=== PATIENT | female | born 1965 | race Caucasian/White ===

== ENCOUNTER → 2018-11-12 | Day surgery (SDC) | payer OTHER ==
--- NOTE | 2018-11-15 11:58 | OP ---
DATE OF OPERATION: 11/12/2018 PREOPERATIVE DIAGNOSIS: Left breast mass, 11:30, 7 cm from the nipple. POSTOPERATIVE DIAGNOSIS: Left breast mass, 11:30, 7 cm from the nipple. PROCEDURE: Left ultrasound-guided core biopsy with clip placement. ANESTHESIA: Local. ATTENDING SURGEON: Magdi Dacosta MD ESTIMATED BLOOD LOSS: Minimal. COMPLICATIONS: None. PROCEDURE: Patient was made aware of the risks and benefits of the procedure and consented. She was placed in a supine position. Under sterile conditions, with 1% lidocaine for local anesthesia, a small anny was made in the skin. Using a 10-gauge suction biopsy device under ultrasound guidance, multiple cores were obtained and submitted to Pathology. Likewise, under ultrasound guidance, a U-shaped clip was placed into the biopsy region. Well tolerated by patient. Steri-Strips and sterile bandage were applied. Will contact her with the results. MAGDI DACOSTA M.D. [id number]
--- NOTE | 2018-11-15 13:36 | PATH ---
Surgical Pathology Report Patient Name: SAMIA GUERRERO [facility]. Rec. #: [id number] /Age/Gender: 1965 (Age: 52) / F Account: [id number] Location: [facility] Taken: 11/12/2018 Received: 11/12/2018 Reported: 11/15/2018 Physicians: Karel Mckeon M.D. 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 MICROCALCIFICATIONS ARE IDENTIFIED. Results of ER and NC studies performed at [facility] are as follows: ER (clone [id number] mouse monoclonal antibody by [employer]): >95% nuclear staining with strong intensity (Positive). NC (clone16 mouse monoclonal antibody by Leica): >95% nuclear staining with strong intensity (Positive). Assays for HER-2/rocco and Ki67 are pending, and a report will follow. Positive and negative controls (internal if applicable) show appropriate results. Formalin fixation times are within current ASCO/CAP recommendations for ER, NC and Her2 testing. Comment: Immunohistochemical stain for e-cadherin performed and interpreted at [facility] is positive, consistent with ductal phenotype. Electronically Signed Ferdinand Katz M.D. Addendum Reported: 11/16/2018 Addendum Diagnosis Results of Her2 (IHC) & Ki-67 studies performed at [place], [place] ([id number]) are as follows: Her2 IHC (EP3 from [employer], formerly known as [id number], using Alfonso Polymer Refine detection kit): 0 /Negative Ki-67: ~10% (Low proliferative index) Positive and negative controls (internal if applicable) show appropriate results. Ferdinand Katz M.D. Gross Description Received in formalin labeled "left breast 11:30, 7 cmfn," is a 2.0 x 1.8 x 0.3 cm aggregate of mcmillan-yellow, irregular to cylindrical portions of fibroadipose tissue. The formalin is filtered and the specimen is entirely submitted in one cassette. Total formalin fixation time: Approximately 6 hours 11/12/201811/12/2018
== END | disposition home or self-care (01) ==
LOC: FRADUS-SUR 13:57
PROVIDERS: ATTEND Surgery Surgical Oncology
PROC: 0HBU3ZX Excision of Left Breast, Percutaneous Approach, Diagnostic (ICD-10-PCS; principal; 2018-11-12)
DX: C50.212 Malignant neoplasm of upper-inner quadrant of left female breast (principal); Z17.0 Estrogen receptor positive status [ER+]; N63.22 Unspecified lump in the left breast, upper inner quadrant
CPT/HCPCS: 19083; 76641-TC-RT; 87899; 88305-TC; 88342-TC; A4648

== ENCOUNTER 2019-01-25 06:57 | Day surgery (SDC) | payer OTHER ==
--- NOTE | 2019-01-14 10:41 | HP ---
Admitting History and Physical - Primary Care Physician PCP: Magdi Dacosta - Admission Chief Complaint: left breast cancer History of Present Illness: Patient is a 53 yo female who was noted to have architectural distortion in the 12 oclock position of left breast on screening mammo. Followup US revealed a corresponding .6 cm at 11:30 (7 cm FN) position. US guided core bx of this lesion ( 11/12/2018) was c/w mod dif invasive ductal ca ER and SD pos. Her 2 negative. The MRI was c/w known breast cancer and genetic testing was negative. Patient is now presenting for left breast WE with NL, snbx poss andx and intraop radiation. History Source: Patient Limitations to Obtaining History: No Limitations (exploratory lap-1988 Excision of right thigh lipoma (2008) Right breast excisional bx (2004-fibroadenoma)) - Past Medical History Endocrine: Yes: Hypothyroidism - Past Surgical History Past Surgical History: Yes: Hysterectomy (BONIFACIO prolapse uterus at age 42) - Smoking History Smoking history: Never smoked Have you smoked in the past 12 months: No - Alcohol/Substance Use Hx Alcohol Use: No Home Medications - Allergies Allergies/Adverse Reactions: Allergies Allergy/AdvReac Type Severity Reaction Status Date / Time No Known Allergies Allergy Verified 11/24/18 10:35 - Home Medications Home Medications (free text): synthroid Family Disease History - Family Disease History Family History: Unremarkable Family Disease History: CA: Grandparent (mat GM and mat GF CRC 50's /83) Review of Systems - Review of Systems Constitutional: reports: No Symptoms Cardiovascular: reports: No Symptoms Respiratory: reports: No Symptoms Physical Examination Constitutional: Yes: Well Nourished Cardiovascular: Yes: WNL Respiratory: Yes: WNL Breast(s): Yes: Other ( Breasts are symmetrical without any skin changes. No suspicious palpable masses or adenopathy noted bilaterally.) Problem List - Problems (1) Breast cancer, left Code(s): C50.912 - MALIGNANT NEOPLASM OF UNSPECIFIED SITE OF LEFT FEMALE BREAST Qualifiers: Breast location: upper inner quadrant of breast Estrogen receptor status: positive Patient sex: female Qualified Code(s): C50.212 - Malignant neoplasm of upper-inner quadrant of left female breast; Z17.0 - Estrogen receptor positive status [ER+] Assessment/Plan Plan: Left breast WE with NL, snbx, possible andx and intraop radiation
[2019-01-20 10:19] VITALS: BMI 30.1
[2019-01-25] MEDS ORDERED: ISOSULFAN BLUE 10 MG/ML VIAL SQ ONE (14:18)
[2019-01-25] MEDS ORDERED: PROPOFOL 20 ML ONE ×14 (14:28→16:58)
[2019-01-25] MEDS ORDERED: DEXAMETHASONE SOD PHOSPHATE 4 MG/1 ML VIAL ONE (14:35)
[2019-01-25] MEDS ORDERED: ROCURONIUM BROMIDE 50 MG/5 ML SYRINGE ONE (14:35)
[2019-01-25] MEDS ORDERED: LIDOCAINE HCL/PF 2% SDV 5ML VIAL ONE (14:35)
[2019-01-25] MEDS ORDERED: ONDANSETRON 4 MG/2 ML VIAL ONE (14:35)
[2019-01-25] MEDS ORDERED: MIDAZOLAM HCL 2 MG/2 ML SINGLE DOSE VIAL ONE (14:35)
[2019-01-25] MEDS ORDERED: KETOROLAC TROMETHAMINE 30 MG/1 ML VIAL ONE (15:03)
[2019-01-25] MEDS ORDERED: EPHEDRINE SULFATE/0.9% NACL/PF 50 MG/10 ML SYRINGE NR ONE (15:14)
[2019-01-25] MEDS ORDERED: KETOROLAC TROMETHAMINE 30 MG/1 ML VIAL IVPUSH PRN (16:33)
[2019-01-25] MEDS ORDERED: ONDANSETRON 4 MG/2 ML VIAL IVPUSH PRN ×2 (16:33→17:46)
[2019-01-25] MEDS ORDERED: DEXTROSE 5%-0.45% SALINE 1,000 ML IV SCH (16:45)
[2019-01-25] MEDS ORDERED: GUM MASTIC/STORAX/MSAL/ALCOHOL 1 DRP DROPSBTL MC ONE (17:30)
[2019-01-25] MEDS ORDERED: oxyCODONE HCL 5 MG TABLET PO PRN (17:46)
[2019-01-25] MEDS ORDERED: LACTATED RINGERS SOLUTION 1,000 ML IV SCH (18:00)
[2019-01-25 18:49] VITALS: TEMP 97.8
[2019-01-25 19:16] VITALS: BP 114/68; PULSE 71
--- NOTE | 2019-01-26 12:31 | OP ---
DATE OF OPERATION: 01/25/2019 PREOPERATIVE DIAGNOSIS: Left breast cancer. POSTOPERATIVE DIAGNOSIS: Left breast cancer. PROCEDURE: Post-lumpectomy intraoperative radiation therapy for left breast cancer. ATTENDING SURGEON: Magdi Dacosta MD HEALTH PROMOTER/RADIATION ONCOLOGIST: Oleksandr Contreras MD ANESTHESIA: General. COMPLICATIONS: None. INDICATIONS: The patient is a 53-year-old woman with a clinical stage I invasive duct carcinoma of the left breast who has elected breast conservation therapy with intraoperative radiation therapy on the [facility] trial. DESCRIPTION OF PROCEDURE: Dr. Dacosta performed left lumpectomy and sentinel lymph node biopsy which he has dictated. After excision of additional margins, the lumpectomy cavity was prepared and sized with a 4.5-cm diameter spherical applicator which was placed into the surgical cavity at the 12 o'clock aspect of the left breast. The surrounding breast tissues were cinched around the applicator with a Vicryl purse-string suture. I performed a clinical and ultrasound simulation to ensure that the applicator was located within the operative bed with close apposition of the surrounding breast tissue to the surface of the applicator. Ultrasound measurements confirmed at least 1.8-cm separation from the applicator to the skin at the 6 o'clock aspect of the applicator. Saline soaked Ray-Jacobo gauze were placed between the skin and breast tissue to optimize the separation. We confirmed that the system was off the chest wall. Shielding material was placed over the breast to reduce scatter radiation. The patient then received a total dose of 20 Gy prescribed to 0 mm from the applicator surface, with 50-kV x-rays using the Intrabeam System. Prior to treatment, the system was double checked with appropriate physics lead quality technician measures. The total time required for the treatment was 37 minutes, 6 seconds at a dose rate of 0.538 Gy per minute. When the treatment was completed , survey of the patient and room confirmed that the Intrabeam source was off. There were no complications or unplanned interruptions. Dr. Dacosta removed the radiation applicator from the patient and completed the surgery. The patient will be discharged to the recovery room following the surgery. OLEKSANDR CONTRERAS M.D. [id number] CC: Magdi Dacosta MD [facility]
--- NOTE | 2019-01-26 12:48 | OP ---
DATE OF OPERATION: 01/25/2019 PREOPERATIVE DIAGNOSIS: Left breast cancer. POSTOPERATIVE DIAGNOSIS: Left breast cancer. PROCEDURE: Left breast partial mastectomy with sentinel lymph node biopsy and intraoperative radiation. ANESTHESIA: General intubated. ATTENDING SURGEON: Hipolito Dacosta MD SAMPLES AND REPAIRS PREPARER: SHE Dunne ESTIMATED BLOOD LOSS: Minimal. COMPLICATIONS: None. PROCEDURE: Patient was made aware of the risks and benefits of the procedure and consented. Patient went to Radiology where a needle was placed next to the index lesion as well as Nuclear Medicine where the breast was injected with a nuclear tracer. She was then placed in the supine position on the operating room table and after general anesthesia was induced the patient was intubated. The operative site was prepped and draped in the usual sterile fashion. Isosulfan blue 2.5 mL were locally infiltrated into the peritumoral tissues in the left breast. Waiting approximately 20 minutes with gentle manual compression a curvilinear incision was made in the left axilla. Using blunt and sharp dissection posterior 3 or 4 lymph nodes were excised and submitted to Pathology for permanent section. Interrogation of the axilla with palpation and the Neoprobe revealed no suspicious hot lymph nodes. The wound was copiously irrigated with normal saline. Hemostasis maintained by electrocautery. The wound was closed with deep 3-0 Vicryl followed by a running subcuticular 4-0 Monocryl. The left breast was then approached. A curvilinear parallel incision was then made using electrocautery. Thick skin flaps were made. The needle was withdrawn from the puncture site and the wire through the wound. Tissues around the wire were then sharply excised and submitted with short suture superior, long suture lateral. Specimen radiograph confirmed the presence of the index lesion and the specimen was submitted for permanent sectioning. Additional segments were taken superior, inferior, medial, lateral, deep and anterior with clips at the new margin. The wound was copiously irrigated with normal saline. Hemostasis maintained by electrocautery. A 4.5-cm probe was then placed into the cavity and the tissue was apposed to it using a No. 1 Vicryl pursestring suture. Intraoperative ultrasound showed that all the distances from the skin were greater than 1 cm. Saline-soaked gauze was placed in the wound to protect the skin edges and a radiopaque material was placed over the chest cavity. The patient underwent approximately 38 minutes of intraoperative radiation. Thereafter, the probe, gauze and suture were removed. The wound was copiously irrigated with normal saline. Hemostasis maintained by electrocautery. Tissues were rotated into the defect and closed with several layers of figure-of-8 sutures of 2-0 Vicryl. Skin was then closed with interrupted 3-0 Vicryl followed by a running subcuticular 4-0 Monocryl. Steri-Strips, sterile dressing and a compression bra were then applied and the patient having tolerated the procedure well was transferred to the recovery room in excellent condition. HIPOLITO DACOSTA M.D. [id number]
--- NOTE | 2019-01-31 10:39 | PATH ---
Surgical Pathology Report Patient Name: SAMIA GUERRERO [facility]. Rec. #: [id number] /Age/Gender: 1965 (Age: 53) / F Account: [id number] Location: [facility] Taken: 01/25/2019 Received: 01/25/2019 Reported: 01/31/2019 Physicians: Magdi Dacosta M.D. Specimen(s) Received A: LEFT AXILLARY SENTINEL NODES B: LEFT BREAST WIDE EXCISION C: LEFT BREAST DEEP MARGIN D: LEFT BREAST ANTERIOR MARGIN E: LEFT BREAST SUPERIOR MARGIN F: LEFT BREAST INFERIOR MARGIN G: LEFT BREAST MEDIAL MARGIN H: LEFT BREAST LATERAL MARGIN Clinical History Wide excision: Invasive Ca Final Diagnosis A. LEFT AXILLARY SENTINEL LYMPH NODES, EXCISION: THREE LYMPH NODES, NEGATIVE FOR METASTATIC CARCINOMA (0/3). B. LEFT BREAST, WIDE EXCISION: INVASIVE DUCTAL CARCINOMA, MODERATELY DIFFERENTIATED (TUBULE SCORE 3/3, NUCLEAR GRADE: 2/3, MITOTIC SCORE: 1/3, TOTAL SCORE 6/9, DIAMOND GRADE 2), MEASURING 0.8 CM IN GREATEST DIMENSION, MICROSCOPICALLY. ONE SEPARATE INVASIVE CARCINOMA SATELLITE NODULE, MEASURING <1 MM IN GREATEST DIMENSION, IS PRESENT. DUCTAL CARCINOMA IN SITU (DCIS) NOT IDENTIFIED. SURGICAL MARGINS ARE UNINVOLVED BY CARCINOMA. INVASIVE CARCINOMA IS AT 1 MM FROM THE CLOSEST (SUPERIOR) MARGIN. ALSO SEE SPECIMENS C TO H FOR FINAL MARGINS. NO LYMPHOVASCULAR INVASION IS IDENTIFIED. PRIOR BIOPSY SITE WITH REACTIVE CHANGES. PATHOLOGIC STAGE (pTNM): pT1b, pN (sn)0 SEE ALSO INVASIVE CARCINOMA CASE SUMMARY BELOW. Comment: Immunohistochemical stains (block B2) performed and interpreted at [facility] show the following results: smooth muscle myosin heavy chain and p63 show loss of the myoepithelial cell layer in the areas of invasive carcinoma. E-Cadherin shows membranous expression in the tumor cells, supports a ductal phenotype. C. LEFT BREAST DEEP MARGIN, EXCISION: BENIGN BREAST TISSUE. NEGATIVE FOR CARCINOMA. D. LEFT BREAST ANTERIOR MARGIN, EXCISION: BENIGN BREAST TISSUE. NEGATIVE FOR CARCINOMA. E. LEFT BREAST SUPERIOR MARGIN, EXCISION: BENIGN BREAST TISSUE. NEGATIVE FOR CARCINOMA. F. LEFT BREAST INFERIOR MARGIN, EXCISION: BENIGN BREAST TISSUE. NEGATIVE FOR CARCINOMA. G. LEFT BREAST MEDIAL MARGIN, EXCISION: BENIGN BREAST TISSUE. NEGATIVE FOR CARCINOMA. H. LEFT BREAST LATERAL MARGIN, EXCISION: BENIGN BREAST TISSUE. NEGATIVE FOR CARCINOMA. Comments Breast Invasive Carcinoma: Surgical Pathology Case Summary (Based on AJCC TNM 8 th edition) Procedure _x_ Excision (less than total mastectomy) Specimen Laterality _x_ Left Tumor Size Greatest dimension of largest invasive focus >1 mm (millimeters): 8 mm Histologic Type _x_ Invasive carcinoma of no special type (ductal, not otherwise specified) Histologic Grade (O'Brien Histologic Score) Glandular (Acinar)/Tubular Differentiation _x_ Score 3 (<10% of tumor area forming glandular/tubular structures) Nuclear Pleomorphism _x_ Score 2 Mitotic Rate _x_ Score 1 Overall Grade _x_ Grade 2 (scores of 6 or 7) Tumor Focality _x_ Multiple foci of invasive carcinoma +__x_ Number of foci: 2 + Sizes of individual foci (millimeters): 8mm and <1mm in greatest dimension Ductal Carcinoma In Situ (DCIS) _x_ No DCIS in specimen Margins Invasive Carcinoma Margins _x_ Uninvolved by invasive carcinoma Distance from closest margin (millimeters): > 1 mm Closest margin: Superior. The carcinoma is at 1mm from the superior margin in the wide excision (specimen B). Additional superior margin (specimen E) is negative for carcinoma. DCIS Margins _x_ No DCIS in specimen Regional Lymph Nodes _x_ Uninvolved by tumor cells Number of Lymph Nodes Examined: 3 Number of [place] Nodes Examined: 3 Treatment Effect _x_ No known presurgical therapy Lymphovascular Invasion _x_ Not identified Pathologic Stage Classification (pTNM, AJCC 8th Edition) Primary Tumor (Invasive Carcinoma) (pT) _x_ pT1b: Tumor >5 mm but =10 mm in greatest dimension Regional Lymph Nodes (pN) Category (pN) _x_ pN0: No regional lymph node metastasis identified or ITCs only Biomarker Studies Results of ER and ME studies performed on prior biopsy (D1) at [facility] are as follows: ER (clone [id number] mouse monoclonal antibody by [employer]): >95 % nuclear staining with strong intensity (positive). ME (clone16 mouse monoclonal antibody by [employer]):>95% nuclear staining with strong intensity (positive). Results of Her2 (IHC) & Ki-67 studies performed on prior biopsy (D18) at [place], [place] ([id number]) are as follows: Her2 IHC (EP3 from [employer], formerly known as [id number], using Alfonso Polymer Refine detection kit): 0/negative Ki67:~10% (low proliferative index) Electronically Signed Destinee Roldan M.D. Gross Description A. Received in formalin, labeled "left axillary sentinel nodes" are three lymph nodes with attached adipose tissue, ranging from 0.5-2 cm in greatest dimension. The largest lymph node is bisected and the lymph nodes are entirely submitted in to the follows: 1-larger bisected lymph node; 2-two whole lymph nodes. B. Received in formalin, labeled "left breast wide excision" is a 4 x 3.2 x 1.8 cm portion of fibrofatty tissue with a localizing needle in place. A long suture designates the lateral margin and a short suture indicates the superior margin, per the surgeon. The specimen is inked as follows: Superior blue, inferior green, medial yellow, deep black, anterior and lateral red. Sectioning reveals a central, hemorrhagic biopsy site with surrounding areas of fat necrosis and foci of firm to fibrous tissue, abutting the superior and anterior margins. No definitive mass is identified. The specimen is entirely submitted in ten cassettes as follows: 1-6- serially sectioned. central tissue with biopsy site including superior, inferior, anterior and deep margins; 7,8- lateral margin; 9,10-medial margin. Time to formalin fixation: 6 minutes Total formalin fixation time: Approximately 28 hours C. Received in formalin, labeled "deep margin" is a 2.8 x 2.5 x 0.4 cm portion of fibrofatty tissue with a clip at the new margin, per the surgeon. The new margin is inked black. The specimen is sectioned and entirely submitted in three cassettes. D. Received in formalin, labeled "anterior margin" is a 2 x 1.2 x 0.4 cm portion of fibrofatty tissue with a clip at the new margin, per the surgeon. The new margin is inked black. The specimen is sectioned and entirely submitted in two cassettes. E. Received in formalin, labeled "superior margin" is a 1.4 x 0.8 x 0.5 cm portion of fibrofatty tissue with a clip at the new margin, per the surgeon. The new margin is inked black. The specimen is sectioned and entirely submitted in two cassettes. F. Received in formalin, labeled "inferior margin" is a 3 x 1.8 x 1.0 cm portion of the right tissue with a clip. The new margin, per the surgeon. The new margin is inked black. Sectioning reveals dense mcmillan fibrous tissue. The specimen is sectioned and entirely submitted in three cassettes. G. Received in formalin, labeled " medial margin" is a 1.5 x 1 x 0.5 cm portion of fibrofatty tissue with a clip at the new margin, per the surgeon. The new margin is inked black. The specimen is sectioned and entirely submitted in two cassettes. H. Received in formalin, labeled "lateral margin" is a 2.8 x 2.5 x 0.4 cm portion of fibrofatty tissue with a clip at the new margin, per the surgeon. The new margin is inked black. The specimen is sectioned and entirely submitted in two cassettes. AE/01/26/2019 ebram/01/26/2019
== END 2019-01-25 19:15 | disposition home or self-care (01) ==
LOC: FASU 06:57 → MERGE 11:00 → FASU 19:15
PROVIDERS: ATTEND Surgery Surgical Oncology
PROC: 0HBU0ZZ Excision of Left Breast, Open Approach (ICD-10-PCS; principal; 2019-01-25 15:24)
PROC: DMY07ZZ Contact Radiation of Left Breast (ICD-10-PCS; 2019-01-25 15:24)
DX: C50.212 Malignant neoplasm of upper-inner quadrant of left female breast (principal); Z17.0 Estrogen receptor positive status [ER+]; E03.9 Hypothyroidism, unspecified; Z90.710 Acquired absence of both cervix and uterus
CPT/HCPCS: 19281; 76641-TC-50; 77290; 77300; 77316; 77332; 77370-TC; 77424; 78195-TC; 88307-TC; 88341-TC; 88342-TC; 94760; A9541; C9726

== ENCOUNTER 2022-01-22 06:44 | Day surgery (SDC) | payer OTHER ==
[2022-01-22 10:41] LABS: BASO % 0.6 % (0-2.0); EOS % 2.1 % (0-4.5); HEMOGLOBIN 13.6 GM/dL (10.7-15.3); MCH 28.2 pg (25.7-33.7); MCHC 33.9 g/dl (32.0-36.0); MEAN CELL VOLUME 83.2 fl (80-96); MEAN PLT VOLUME 8.7 fl (7.5-11.1); MONO % 8.8 % (3.8-10.2); NEUT % 64.5 % (42.8-82.8); PLATELET COUNT 214 10^3/uL (134-434); RBC 4.81 M/mm3 (3.60-5.2); RDW 14.1 % (11.6-15.6); WHITE BLOOD COUNT 6.1 K/mm3 (4.0-10.0)
[2022-01-22 11:09] LABS: BLOOD UREA NITROGEN 17.4 mg/dL (7-18); CALCIUM 9.2 mg/dL (8.5-10.1)
[2022-01-22 11:12] LABS: CREATININE 0.8 mg/dL (0.55-1.3)
[2022-01-22 11:14] LABS: BILIRUBIN,TOTAL 0.5 mg/dL (0.2-1); TOT PROT 7.4 g/dl (6.4-8.2)
[2022-01-22] MEDS ORDERED: DENOSUMAB 60 MG/ML DISP.SYRIN SQ ONE (12:00)
[2022-01-22 17:45] VITALS: BP 112/62; PULSE 57; RESP 16; TEMP 97.5
== END 2022-01-22 12:30 | disposition home or self-care (01) ==
LOC: JONCCHEMO 06:44
PROVIDERS: ATTEND Internal Medicine Hematology & Oncology
DX: Z51.11 Encounter for antineoplastic chemotherapy (principal); C50.212 Malignant neoplasm of upper-inner quadrant of left female breast
CPT/HCPCS: 36415; 80053; 85025; 96401; J0897

== ENCOUNTER 2022-07-22 08:59 | Day surgery (SDC) | payer OTHER ==
[2022-07-22] MEDS ORDERED: ZOLEDRONIC ACID 4 MG in SODIUM CHLORIDE 100 ML IVPB ONE (10:00)
[2022-07-22] MEDS ORDERED: SODIUM CHLORIDE 1,000 ML IV SCH (10:00)
[2022-07-22 15:14] VITALS: BP 107/43; PULSE 80; RESP 20; TEMP 98.5
== END 2022-07-22 11:45 | disposition home or self-care (01) ==
LOC: JONCCHEMO 08:59
PROVIDERS: ATTEND Internal Medicine Hematology & Oncology
PROC: 3E033GC Introduction of Other Therapeutic Substance into Peripheral Vein, Percutaneous Approach (ICD-10-PCS; principal; 2022-07-22)
DX: C50.212 Malignant neoplasm of upper-inner quadrant of left female breast (principal); Z17.0 Estrogen receptor positive status [ER+]
CPT/HCPCS: 96365; J3489